=== PATIENT | male | born 1985 | race Two or more races ===

== ENCOUNTER 2024-12-31 19:22 | Emergency (ER) | payer MEDICAID, SELFPAY ==
[2024-12-31 19:25] VITALS: BMI 37.9
[2024-12-31 19:35] VITALS: BP 150/87; PULSE 96; RESP 20; TEMP 37.4; O2SAT 97
[2024-12-31] MEDS: HYDROcodone/APAP 5/325 TABLET 1 TAB PO (20:20)
[2024-12-31] MEDS: CLINDAMYCIN PHOS INJ 150 MG/ML VIAL 6 ML 600 MG IM (20:20)
[2024-12-31] MEDS: KETOROLAC INJ 60 MG/2 ML VIAL 30 MG IM (20:21)
--- NOTE | 2024-12-31 20:23 | EDNOTE_ITS ---
ED Skin Abcess FB-RME/HPI General Chief complaint: General Adult/Misc Complain Stated complaint: limp buttocks Time Seen by Provider: 12/31/24 19:44 Arrival date/time: 12/31/24 19:22 This is a case of 39-year-old male who came in the emergency room due to painful lump on the right inner buttocks with redness and swelling for 3 days worsening of the symptoms this patient decided to sought consult here in the emergency room Limitations: no limitations Related Data Previous Rx's ?Medication ?Instructions ?Recorded cephalexin 500 mg capsule 500 mg PO QID #40 caps 12/31 ibuprofen 800 mg tablet 800 mg PO Q8H PRN pain #20 t abs 12/31/24 sulfamethoxazole 800 1 tab PO Q12H #20 tabs 12/31 mg-trimethoprim 160 mg tablet (Bactrim DS) Allergies Allergy/AdvReac Type Severity Reaction Status Date / Time No Known Allergies Allergy Verified 12/31/24 19:24 Review of Systems Review of Systems Systems Reviewed: All systems reviewed, normal except as documented Constitutional Constitutional: Reports system reviewed and no additional complaints, except as documented and Reports as per HPI Cardiovascular Cardiovascular: Reports system reviewed and no additional complaints, except as documented and Reports as per HPI Respiratory Respiratory: Reports system reviewed and no additional complaints, except as documented and Reports as per HPI Gastrointestinal Gastrointestinal: Reports system reviewed and no additional complaints, except as documented and Reports as per HPI Genitourinary Genitourinary: Reports system reviewed and no additional complaints, except as documented and Reports as per HPI Musculoskeletal Musculoskeletal: Reports system reviewed and no additional complaints, except as documented and Reports as per HPI Integumentary/Breasts Skin/Breast: Reports other (Abscess) Neurologic Neurologic: Reports system reviewed and no additional complaints, except as documented and Reports as per HPI Past Medical History Social History SMOKING STATUS: Never smoker ED Exam General Limitations: Present no limitations General appearance: Present alert, in no apparent distress and other (Patient is awake alert oriented not in distress nontoxic looking well-hydrated well- nourished) Head Head exam: Present atraumatic, normocephalic and normal inspection Eye Eye exam: Present normal appearance, PERRL and EOMI ENT ENT exam: Present normal exam, normal oropharynx and mucous membranes moist Neck Neck exam: Present normal inspection, full ROM and trachea midline Chest Chest inspection: Present normal inspection and symmetric chest wall rise Respiratory Respiratory exam: Present normal lung sounds bilaterally; Absent respiratory distress, wheezes, stridor, accessory muscle use or prolonged expiratory phase Cardiovascular Cardiovascular exam: Present regular rate, normal rhythm and normal heart sounds; Absent bradycardia, tachycardia, irregular rhythm, systolic murmur or diastolic murmur Abdominal Exam Abdominal exam: Present soft and normal bowel sounds; Absent distention, tenderness, guarding, rebound, rigidity, diminished bowel sounds, hyperactive bowel sounds, hypoactive bowel sounds or organomegaly Extremities Exam Extremities exam: Present normal inspection and full ROM Back Exam Back exam: Present normal inspection and full ROM; Absent tenderness, CVA tenderness (R), CVA tenderness (L), muscle spasm, paraspinal tenderness, vertebral tenderness, sciatic notch tenderness (R), sciatic notch tenderness (L), straight leg raise (R) or straight leg raise (L) Neurological Exam Neurological exam: Present alert, oriented X3, CN II-XII intact, normal gait and reflexes normal; Absent motor sensory deficit Psychiatric Psychiatric exam: Present normal affect and normal mood Skin Skin exam: Present warm, dry, intact, normal color and other (Noted 2 cm lump on the right inner buttock tender to touch swelling redness no cellulitis no fluctuance not indurated suggestive of abscess no ulcer noted no perianal abscess) Course Quality Measures none Orders Category Date Time Status Clindamycin Vial [Cleocin vial] Med 12/31/24 19:45 Discontinued 600 mg IM X1 ONE HYDROcodone*/APAP 5/325 [[place] 5/325] Med 12/31/24 19:45 Discontinued 1 tab PO X1 ONE Ketorolac Inj [Toradol Inj] Med 12/31/24 19:45 Discontinued 30 mg IM X1 ONE Vital Signs Vital signs: Vital Signs Temperature 99.3 F 12/31/24 19:35 Pulse Rate 96 12/31/24 19:35 Respiratory Rate 20 12/31/24 19:35 Blood Pressure 150/87 H 12/31/24 19:35 Pulse Oximetry (%) 97 12/31/24 19:35 Oxygen Delivery Method Room Air 12/31/24 19:35 Oxygen saturation is 97% in room air normal Skin / Abscess / Foreign Body MDM Narrative MDM Narrative:: This is a case of 39-year-old male who came in the emergency room due to painful lump on the right inner buttocks with redness and swelling for 3 days worsening of the symptoms this patient decided to sought consult here in the emergency room physical examination patient is awake alert oriented not in distress nontoxic looking well-hydrated well-nourished patient noted to have 2 cm lump on the right inner buttocks tender to to touch mild swelling redness no cellulitis no fluctuance not indurated suggestive of cutaneous abscess patient was given a dose of clindamycin here in the emergency room and was discharged with cephalexin and Bactrim they were advised to return in 2 days for reevaluation and possible incision and drainage warm compress is also advised and keep the area clean and dry worsening of the symptoms return precaution in the ER is advised he will also follow-up with PCP for reevaluation Patient was discharged with comfortable condition walking with stable gait. Patient verbalized no further complains explained diagnosis and answered patient question. Patient is comfortable with the proposed management plan including the need to follow up with his/her primary care physician and any specialist if applicable Discussed patient for any urgent condition or worsening sx, He/She needed to go to emergency room immediately or call 911. Patient acknowledge the responsibility to follow up as instructed and to monitor her/his symptoms. For any persistence of the symptoms for more than 3-5 days return precaution advised. Discussed the result of the test and was given printed discharge instruction Patient data External records reviewed:: [facility] previous records Clinical information provided by:: patient Social determinants that could affect healthcare access:: none Patient has the following chronic illnesses:: None How is presenting disease/condition affected by chronic disease/condition?: no chronic disease Evaluation data The following diagnostics were reviewed and interpreted by me:: other (specify) Lab and/or radiology exams considered but not ordered:: None Interpretation Summary: None Medications / Prescriptions Medications or Prescriptions considered but not ordered:: Given Medication administrations:: Medication Administration History Discontinued Medications Hydrocodone Bitart/Acetaminophen (Hydrocodone/Apap 5/325 Tablet) 1 tab PO X1 ONE Stop: 12/31/24 19:46 Clindamycin Phosphate (Clindamycin Phos Inj 150 Mg/Ml Vial 6 Ml) 600 mg IM X1 ONE Stop: 12/31/24 19:46 Ketorolac Tromethamine (Ketorolac Inj 60 Mg/2 Ml Vial) 30 mg IM X1 ONE Stop: 12/31/24 19:46 Given Consultations Consultation(s) initiated? (list below): No Diagnosis Skin/Abscess Differential Diagnosis: abscess of skin or subcutaneous tissue and cellulitis Most likely diagnosis given after review of the tests above:: Cutaneous abscess buttocks Admission Indicated Admission indicated?: not indicated Explain why admission is indicated or not indicated:: Not indicated Admission Request Was there a request for admission?: No Admission Attestation Admission request attestation: Not indicated Disposition Plan Disposition Plan: Discharge Discharge Attestation Discharge Attestation: The patient and all family members were given an opportunity to ask questions and understood the discharge instructions. Discharge instructions specifically effects, indications for sooner follow up or return to the emergency department, and the expected course of current diagnosis. Patient condition: Stable Discharge Plan Plan Patient Disposition: HOME (Self Care) Patient condition on transfer: Stable Prescriptions/Referrals Prescriptions/Med Rec: New cephalexin 500 mg capsule 500 mg PO QID Qty: 40 0RF sulfamethoxazole-trimethoprim [Bactrim DS] 800-160 mg tablet 1 tab PO Q12H Qty: 20 0RF ibuprofen 800 mg tablet 800 mg PO Q8H PRN (Reason: pain) Qty: 20 0RF Problem List Clinical Impression: Cutaneous abscess of buttock Patient/Caregiver Discharge Instructions Education Materials: ED Abscess Antibiotic ... Additional Instructions: Follow-up with your primary care physician in 2 days for reevaluation return to the emergency room in 2 days for reevaluation and possible incision and drainage worsening symptoms or any emergent concern call 911 or go to the nearest emergency room take your medication as directed finish the course of antibiotic warm compress keep the area clean and dry Print Language: Egyptian Stand Alone Forms: [facility] Award Info., Patient Portal Info Letter PA/AT RISK SPECIALIST Supervising Physician PA/RAVIN Supervising Physician: Dr. Rosa Arcos
== END 2024-12-31 20:47 | disposition home or self-care (01) ==
LOC: SERX 20:40
PROVIDERS: Emergency Provider Emergency Medicine; PCP Family Medicine
DX: L02.31 Cutaneous abscess of buttock (principal)
CPT/HCPCS: 96372; 99283; J0736; J1885; A9270

== ENCOUNTER 2025-01-02 18:16 | Emergency (ER) | payer MEDICAID, SELFPAY ==
[2025-01-02 19:04] VITALS: BP 174/93; PULSE 78; RESP 20; TEMP 36.7; O2SAT 96; BMI 38.8
--- NOTE | 2025-01-02 19:09 | XR_ITS ---
Examination: CT abdomen with intravenous contrast CT pelvis with intravenous contrast 2-D coronal reconstructions 2-D sagittal reconstructions Date and time of exam: January 02, 2025, 1933 hours INDICATIONS: Perianal swelling and drainage 1 week. CTDI: vol (mGy) 13.5 DLP: (mGycm) 887 Technique: Multiple axial sections of the abdomen and pelvis have been obtained. 64 slice high-resolution scanner used. 3 mm axial sections have been obtained, post intravenous injection 60 cc Isovue 370 2-D sagittal, coronal reconstructions obtained. Low dose protocols were performed. One or more of the following dose reduction techniques were used; automated exposure control, adjustment of the mA and/or KV according to patient size, use of iterative reconstruction technique. Findings: No focal liver or splenic lesions Contracted gallbladder No pancreatic or adrenal mass. No renal or ureteral calculi. Normal appendix Urinary bladder intact No prostatomegaly Minimal perianal inflammatory change with thickening of the skin in the intergluteal fold region Sagittal image 99 demonstrates 10 mm early left perianal abscess IMPRESSION: Early 10 mm left perianal abscess, recommend MRI pelvis follow-up pre and postcontrast
[2025-01-02 19:31] LABS: Basophils # (Auto) 0.0 Thou/mm3 (0.0-0.2); Basophils % (Auto) 0 % (0-2.5); Eosinophils # (Auto) 0.2 Thou/mm3 (0.0-0.5); Eosinophils % (Auto) 2 % (0-10); Hematocrit 46.5 % (41.0-53.0); Hemoglobin 16.0 g/dL (13.5-16.0); Immature Granulocytes Auto 0.04 Thou/mm3 (0.00-0.00); Lymphocytes # (Auto) 2.1 Thou/mm3 (1.0-4.8); Lymphocytes % (Auto) 23 % (10-50); Mean Corpuscular HGB Conc 34.4 g/dl (31.0-37.0); Mean Corpuscular Hemoglobin 31.4 pg (25.0-35.0); Mean Corpuscular Volume 91 fL (80-100); Monocytes # (Auto) 1.1 Thou/mm3 (0.0-0.8); Monocytes % (Auto) 12 % (0-12); Neutrophils # (Auto) 5.8 Thou/mm3 (1.8-7.7); Neutrophils % (Auto) 63 % (37-80); Nucleated Red Blood Cell # 0.00 Thou/mm3 (0.00-0.00); Nucleated Red Blood Cell % 0 /100 WBC (0); Platelet Count 194 Thou/mm3 (140-440); RDW Standard Deviation 41.7 fL (35.1-43.9); Red Blood Count 5.10 Miln/mm3 (4.50-5.90); White Blood Count 9.3 Thou/mm3 (3.8-10.6)
[2025-01-02] MEDS: VANCOMYCIN/NS 1 GM IVPB 200 ML IV (19:49)
[2025-01-02 19:51] LABS: Alanine Aminotransferase 74 U/L (10-49); Albumin, Serum 4.8 gm/dL (3.5-5.0); Albumin/Globulin Ratio 1.8 (1.2-2.2); Alkaline Phosphatase 102 U/L (46-116); Anion Gap 11 (7-16); Aspartate Amino Transferase 49 U/L (0-34); BUN/Creatinine Ratio 14 Ratio (12-20); Bilirubin,Total 0.4 mg/dL (0.3-1.2); Blood Urea Nitrogen 15 mg/dL (9-23); Calcium 9.4 mg/dL (8.3-10.6); Calcium (Corrected) 9.4 mg/dL (8.5-10.1); Carbon Dioxide 23.9 mMol/L (20.0-31.0); Chloride 107 mMol/L (98-107); Creatinine (Component) 1.1 mg/dL (0.6-1.3); Estimated Creatinine Clearance 106.9 mL/min (>60); Globulin 2.6 gm/dL (2.3-3.5); Glucose 87 mg/dL (74-106); Osmolality,Calculated 282 (275-295); Potassium 3.7 mMol/L (3.4-5.1); Sodium 142 mMol/L (136-145); Total Protein 7.4 gm/dL (5.7-8.2); eGFR > 60 See Note
--- NOTE | 2025-01-02 20:45 | PD.EDSKIN ---
ED Skin Abcess FB-RME/HPI General Chief complaint: Skin/Abscess/Foreign Body Stated complaint: Recheck area was here Thursday Time Seen by Provider: 01/02/25 18:17 Arrival date/time: 01/02/25 18:16 This is a case of 39-year-old male who came in in the emergency room for wound check abscess on the right inner buttocks patient was seen here 12/31/2024 and was diagnosed to have cutaneous abscess of the right inner buttocks patient was antibiotics here in the emergency room and was discharged with cephalexin and Bactrim and was advised to return in the emergency room for reevaluation history of present illness started 5 days prior to arrival in the emergency room when the patient had a painful lump on the right inner buttocks with redness no discharge tender to touch and swelling patient was treated as cutaneous abscess of the right perianal area patient states that the lump burst and had a serosanguineous discharge since yesterday pain still persist with swelling and redness. Limitations: no limitations Related Data Previous Rx's ?Medication ?Instructions ?Recorded cephalexin 500 mg capsule 500 mg PO QID #40 caps 12/31/24 ibuprofen 800 mg tablet 800 mg PO Q8H PRN pain #20 tabs 12/31/24 sulfamethoxazole 800 1 tab PO Q12H #20 tabs 12/31/24 mg-trimethoprim 160 mg tablet (Bactrim DS) hydrocodone 5 mg-acetaminophen 325 1 tab PO Q6H PRN pain #16 tabs 01/02/25 mg tablet Allergies Allergy/AdvReac Type Severity Reaction Status Date / Time No Known Allergies Allergy Verified 12/31/24 19:24 Review of Systems Review of Systems Systems Reviewed: All systems reviewed, normal except as documented Constitutional Constitutional: Reports system reviewed and no additional complaints, except as documented and Reports as per HPI Cardiovascular Cardiovascular: Reports system reviewed and no additional complaints, except as documented and Reports as per HPI Respiratory Respiratory: Reports system reviewed and no additional complaints, except as documented and Reports as per HPI Gastrointestinal Gastrointestinal: Reports system reviewed and no additional complaints, except as documented and Reports as per HPI Musculoskeletal Musculoskeletal: Reports system reviewed and no additional complaints, except as documented and Reports as per HPI Neurologic Neurologic: Reports system reviewed and no additional complaints, except as documented and Reports as per HPI Past Medical History Past Medical History CARDIAC: Negative Cardiac Disorders RESPIRATORY: Negative Asthma GENITOURINARY: Negative Renal Disease ENDOCRINE: Negative Diabetes Mellitus Type 2 HEMATOLOGIC: Negative Sickle Cell Disease Social History SMOKING STATUS: Former smoker ED Exam General Limitations: Present no limitations General appearance: Present alert, in no apparent distress and other Head Head exam: Present atraumatic Eye Eye exam: Present normal appearance, PERRL and EOMI ENT ENT exam: Present normal exam, normal oropharynx and mucous membranes moist Neck Neck exam: Present normal inspection, full ROM and trachea midline; Absent tenderness, meningismus, lymphadenopathy or thyromegaly Chest Chest inspection: Present normal inspection and symmetric chest wall rise; Absent tenderness Respiratory Respiratory exam: Present normal lung sounds bilaterally; Absent respiratory distress, wheezes, stridor, accessory muscle use or prolonged expiratory phase Cardiovascular Cardiovascular exam: Present regular rate, normal rhythm and normal heart sounds; Absent bradycardia, tachycardia, irregular rhythm, systolic murmur or diastolic murmur Abdominal Exam Abdominal exam: Present soft and normal bowel sounds; Absent distention, tenderness, guarding, rebound, rigidity, diminished bowel sounds, hyperactive bowel sounds, hypoactive bowel sounds or organomegaly Extremities Exam Extremities exam: Present normal inspection and full ROM Back Exam Back exam: Present normal inspection and full ROM Neurological Exam Neurological exam: Present alert, oriented X3, CN II-XII intact, normal gait and reflexes normal; Absent motor sensory deficit Psychiatric Psychiatric exam: Present normal affect and normal mood Skin Skin exam: Present warm, dry, intact, normal color and other (Noted a 2 cm abscess on the right inner buttocks with open wound approximately 0.5 cm draining serosanguineous abscess moderate tenderness mild swelling redness extending to the rectal area no cellulitis no ulcer) Course Quality Measures none Orders Category Date Time Status CT Screening NOW Care 01/02/25 19:[address] abdomen pelvis w con Stat Exams 01/02/25 19:09 Completed CBC Stat Lab 01/02/25 19:25 Completed CMP [Comprehensive Metabolic Panel] Stat Lab 01/02/25 19:25 Completed HYDROcodone*/APAP 5/325 [[place] 5/325] Med 01/02/25 20:37 Discontinued 1 tab PO X1 ONE Vancomycin/Ns 1 gm Ivpb 200 ml Med 01/02/25 19:09 Active IV X1 Vital Signs Vital signs: Vital Signs Temperature 98.1 F 01/02/25 19:04 Pulse Rate 78 01/02/25 19:04 Respiratory Rate 20 01/02/25 19:04 Blood Pressure 174/93 H 01/02/25 19:04 Pulse Oximetry (%) 96 01/02/25 19:04 Oxygen Delivery Method Room Air 01/02/25 19:04 Oxygen saturation is 96% in room air Skin / Abscess / Foreign Body MDM Narrative MDM Narrative:: This is a case of 39-year-old male who came in in the emergency room for wound check abscess on the right inner buttocks patient was seen here 12/31/2024 and was diagnosed to have cutaneous abscess of the right inner buttocks patient was antibiotics here in the emergency room and was discharged with cephalexin and Bactrim and was advised to return in the emergency room for reevaluation history of present illness started 5 days prior to arrival in the emergency room when the patient had a painful lump on the right inner buttocks with redness no discharge tender to touch and swelling patient was treated as cutaneous abscess of the right perianal area patient states that the lump burst and had a serosanguineous discharge since yesterday pain still persist with swelling and redness. Physical examination patient is awake alert oriented not in distress nontoxic looking patient have excellent skin turgor abdominal exam is benign nonsurgical no guarding no rebound no rigidity negative psoas negative straight and negative Rovsing's no McBurney's no Rojas sign negative CVA tenderness patient has no abdominal pain nausea vomiting fever or chills no signs and symptoms of sepsis at the time of exam patient noted to have a 2 cm abscess on the right inner buttocks redness is extended on the right perianal area moderate tenderness mild swelling no cellulitis there is a serosanguineous discharge the abscess opened up and noted to have open wound approximately 0.5 cm based on my physical examination I cannot totally ruled out perianal abscess thus CT scan abdomen pelvis with contrast was ordered blood test showed no leukocytosis no anemia kidney and liver function is normal no electrolyte imbalance CT scan of the abdomen pelvis with contrast showed an early 10 mm perianal abscess patient was given vancomycin here in the emergency room [place] for pain I spoke to Dr. Estrella general surgeon at the time of exam she said that the abscess is very small patient does not indicate to be admitted and to perform any procedures such as debridement or incision or drainage continue the antibiotic follow-up in the ER in 2 days call her clinic to schedule appointment to see her patient will follow-up with PCP in 2 days and reevaluation I relayed discussion from Dr. Fulton to the patient patient understood very well that he needs to return in the emergency room in 2 days for reevaluation of perianal abscess and for any worsening symptoms or any emergent concern he needs to return in the emergency room immediately or call 911 he also informed that he needs to see Dr. Fulton this week for evaluation of perianal abscess he is also informed to continue Bactrim and cephalexin he was prescribed with [place] as needed for pain Patient was discharged with comfortable condition walking with stable gait. Patient verbalized no further complains explained diagnosis and answered patient question. Patient is comfortable with the proposed management plan including the need to follow up with his/her primary care physician and any specialist if applicable Discussed patient for any urgent condition or worsening sx, He/She needed to go to emergency room immediately or call 911. Patient acknowledge the responsibility to follow up as instructed and to monitor her/his symptoms. For any persistence of the symptoms for more than 3-5 days return precaution advised. Discussed the result of the test and was given printed discharge instruction Patient data External records reviewed:: [facility] previous records Clinical information provided by:: patient and family Social determinants that could affect healthcare access:: none Patient has the following chronic illnesses:: None How is presenting disease/condition affected by chronic disease/condition?: no chronic disease Evaluation data The following diagnostics were reviewed and interpreted by me:: lab results and radiology exam(s) Lab and/or radiology exams considered but not ordered:: Reviewed Interpretation Summary: Reviewed Medications / Prescriptions Medications or Prescriptions considered but not ordered:: Given Medication administrations:: Medication Administration History Vancomycin/Sodium Chloride (Vancomycin/Ns 1 Gm Ivpb) 200 mls @ 120 mls/hr IV X1 ONE Stop: 01/02/25 20:48 Last Admin: 01/02/25 19:49 Dose: 120 mls/hr Documented By: RC Discontinued Medications Hydrocodone Bitart/Acetaminophen (Hydrocodone/Apap 5/325 Tablet) 1 tab PO X1 ONE Stop: 01/02/25 20:38 Given Consultations Consultation(s) initiated? (list below): No Consultation #1 (Physician, Specialty, Details): Dr. Fulton general surgeon at the time of exam she said that the abscess is very small patient does not indicate to be admitted and to perform any procedures such as debridement or incision or drainage continue the antibiotic follow-up in the ER in 2 days call her clinic to schedule appointment to see her Diagnosis Skin/Abscess Differential Diagnosis: abscess of skin or subcutaneous tissue, cellulitis and other (Perianal abscess) Most likely diagnosis given after review of the tests above:: Perianal abscess Admission Indicated Admission indicated?: not indicated Explain why admission is indicated or not indicated:: Not indicated Admission Request Was there a request for admission?: No Admission Attestation Admission request attestation: Not indicated Disposition Plan Disposition Plan: Discharge Discharge Attestation Discharge Attestation: The patient and all family members were given an opportunity to ask questions and understood the discharge instructions. Discharge instructions specifically effects, indications for sooner follow up or return to the emergency department, and the expected course of current diagnosis. Patient condition: Stable Discharge Plan Plan Patient Disposition: HOME (Self Care) Patient condition on transfer: Stable Prescriptions/Referrals Prescriptions/Med Rec: New hydrocodone-acetaminophen 5-325 mg tablet 1 tab PO Q6H MDD max 4 tabs per day PRN (Reason: pain) Qty: 16 0RF No Action cephalexin 500 mg capsule 500 mg PO QID Qty: 40 0RF sulfamethoxazole-trimethoprim [Bactrim DS] 800-160 mg tablet 1 tab PO Q12H Qty: 20 0RF ibuprofen 800 mg tablet 800 mg PO Q8H PRN (Reason: pain) Qty: 20 0RF Referrals: Yared Hill MD [Primary Care Provider, Family Practice] - In 1 week Vania Estrella MD [Physician, General Surgery] - 01/03/25 Referral Note: Called the clinic tomorrow for scheduled appointment to see Dr. Fulton for further evaluation and treatment of perianal abscess Problem List Clinical Impression: Perianal abscess Patient/Caregiver Discharge Instructions Education Materials: ED ABSCESS Yennifer-Anal Abx only Additional Instructions: Follow-up with your primary care physician in 2 days for reevaluation it is very important to call the clinic of Dr. Estrella to schedule follow-up appointment for further evaluation and treatment of perianal abscess it is also important to return in the emergency room in 2 days for reevaluation of the perianal abscess worsening symptoms or any emergent concerns such as fever or chills return to the emergency room immediately or call 911 continue cephalexin and Bactrim and finish the course of antibiotic keep the area clean and dry Print Language: Ecuadorean Stand Alone Forms: [facility] Award Info., Patient Portal Info Letter PA/INTERACTIVE DEVELOPER Supervising Physician PA/INTERACTIVE DEVELOPER Supervising Physician: Dr. Rosa Arcos
[2025-01-02] MEDS: HYDROcodone/APAP 5/325 TABLET 1 TAB PO (22:05)
[2025-01-02 22:29] VITALS: BP 152/93; PULSE 69; RESP 16; TEMP 37; O2SAT 95
== END 2025-01-02 22:30 | disposition home or self-care (01) ==
PROVIDERS: Nurse Practitioner Family; Emergency Provider Emergency Medicine; PCP Family Medicine
DX: K61.0 Anal abscess (principal)
CPT/HCPCS: 36415; 74177; 80053; 85025; 96365; 96366; 99283; A4649; J3373; Q9967; A9270